=== PATIENT | male | born 1970 | race American Indian/Alaskan Native ===

== ENCOUNTER 2018-08-23 04:26 | Emergency (ER) | payer MEDICAID ==
[2018-08-23 04:32] VITALS: BP 136/78
--- NOTE | 2018-08-23 05:13 | Emergency Department Report ---
ED Back Pain/Injury HPI - General Chief Complaint: Back Pain/Injury Stated Complaint: BACK PAIN/TOOTH PAIN Time Seen by Provider: 08/23/18 04:54 Source: patient Limitations: No Limitations - History of Present Illness Initial Comments: This is a 47-year-old male nontoxic, well nourished in appearance, no acute signs of distress presents to the ED with c/o of acute on chronic lower back pain. Patient stated that he has lumbar disc herniation for many years. Patient stated that he believes he slept the wrong way and woke up suddenly with sharp pain. Patient states has history of sciatica nerve pain which is similar symptoms as today. Patient states that pain radiates through to his left lower extremity. Patient denies any trauma. Denies any bladder or bowel instability. Patient denies any urinary symptoms. Denies any fever, chills, nausea, vomiting, headache, stiff neck, chest pain or shortness of breath. Patient denies any numbness or tingling. Patient also has a secondary complaint of right lower toothache. Patient denies any facial swelling. Patient denies any radiation of pain. MD Complaint: back pain Similar Symptoms Previously: Yes Radiation: left leg Severity: mild Severity scale (0 -10): 8 Quality: aching Consistency: intermittent Improves With: immobilization, sitting upright Worsens With: movement, walking Associated Symptoms: denies other symptoms. denies: confusion, weakness, chest pain, numbness, difficulty walking, cough, difficulty urinating, diaphoresis, incontinence, fever/chills, constipation, headaches, abdominal pain, loss of appetite, malaise, nausea/vomiting, rash, seizure, shortness of breath, syncope - Related Data Previous Rx's Medication Instructions Recorded Last Taken Type Amoxicillin/K Clav Tab [Augmentin 1 tab PO Q12HR #20 tab 05/20/16 Unknown Rx 875 mg] HYDROcodone/APAP 10-325 [[place] 1 each PO Q6HR PRN #8 tablet 05/20/16 Unknown Rx 10-325 mg TAB] Amoxicillin [Amoxicillin TAB] 875 mg PO BID #20 tablet 09/02/16 Unknown Rx HYDROcodone/APAP 7.5-325 [[place] 1 each PO BID PRN #10 tablet 09/02/16 Unknown Rx 7.5/325] Acetaminophen [Tylenol] 500 mg PO Q8H PRN #20 capsule 08/23/18 Unknown Rx Amoxicillin/K Clav Tab [Augmentin 1 tab PO Q12HR #20 tab 08/23/18 Unknown Rx 875 mg] methOCARBAMOL [Robaxin TAB] 500 mg PO BID PRN #14 tab 08/23/18 Unknown Rx Allergies Allergy/AdvReac Type Severity Reaction Status Date / Time cyclobenzaprine Allergy Unknown Verified 08/23/18 04:45 [From Flexeril] ibuprofen [From Motrin] Allergy Rash Verified 09/02/16 09:58 quetiapine fumarate Allergy Unknown Verified 09/02/16 09:58 [From Seroquel] ED Review of Systems ROS: Stated complaint: BACK PAIN/TOOTH PAIN Other details as noted in HPI Constitutional: denies: chills, fever Eyes: denies: eye pain, eye discharge, vision change ENT: dental pain. denies: ear pain, throat pain Respiratory: denies: cough, shortness of breath, wheezing Cardiovascular: denies: chest pain, palpitations Endocrine: no symptoms reported Gastrointestinal: denies: abdominal pain, nausea, diarrhea Genitourinary: denies: urgency, dysuria Musculoskeletal: back pain. denies: joint swelling, arthralgia Skin: denies: rash, lesions Neurological: denies: headache, weakness, paresthesias Psychiatric: denies: anxiety, depression Hematological/Lymphatic: denies: easy bleeding, easy bruising ED Past Medical Hx - Past Medical History Previous Medical History?: Yes Hx Arthritis: Yes Hx Psychiatric Treatment: Yes (bipolar, depression) Additional medical history: back pain - Surgical History Past Surgical History?: Yes Hx Appendectomy: Yes Additional Surgical History: jaw, right hand, cyst from stomach - Social History Smoking Status: Never Smoker Substance Use Type: None - Medications Home Medications: Home Medications Medication Instructions Recorded Confirmed Last Taken Type Amoxicillin/K Clav Tab [Augmentin 1 tab PO Q12HR #20 tab 05/20/16 Unknown Rx 875 mg] HYDROcodone/APAP 10-325 [[place] 1 each PO Q6HR PRN #8 tablet 05/20/16 Unknown Rx 10-325 mg TAB] Amoxicillin [Amoxicillin TAB] 875 mg PO BID #20 tablet 09/02/16 Unknown Rx HYDROcodone/APAP 7.5-325 [[place] 1 each PO BID PRN #10 tablet 09/02/16 Unknown Rx 7.5/325] Acetaminophen [Tylenol] 500 mg PO Q8H PRN #20 capsule 08/23/18 Unknown Rx Amoxicillin/K Clav Tab [Augmentin 1 tab PO Q12HR #20 tab 08/23/18 Unknown Rx 875 mg] methOCARBAMOL [Robaxin TAB] 500 mg PO BID PRN #14 tab 08/23/18 Unknown Rx ED Physical Exam - General Limitations: No Limitations General appearance: alert, in no apparent distress - Head Head exam: Present: atraumatic, normocephalic - Eye Eye exam: Present: normal appearance Pupils: Present: normal accommodation - ENT ENT exam: Present: mucous membranes moist - Expanded ENT Exam Expanded Ear exam: Present: normal external inspection Mouth exam: Present: normal external inspection Teeth exam: Present: dental caries, fractured tooth #, dental tenderness #, gingival enlargement, other (no facial swelling or signs of abscess) 1 - Fractured, Dental Tenderness Throat exam: Positive: normal inspection. Negative: tonsillar erythema, tonsillomegaly, tonsillar exudate, R peritonsillar mass, L peritonsillar mass - Neck Neck exam: Present: normal inspection, full ROM. Absent: tenderness, meningismus, lymphadenopathy - Respiratory Respiratory exam: Present: normal lung sounds bilaterally. Absent: respiratory distress - Cardiovascular Cardiovascular Exam: Present: regular rate, normal rhythm. Absent: systolic murmur, diastolic murmur, rubs, gallop - GI/Abdominal GI/Abdominal exam: Present: soft, normal bowel sounds - Rectal Rectal exam: Present: deferred - Extremities Exam Extremities exam: Present: normal inspection, full ROM, normal capillary refill. Absent: tenderness - Back Exam Back exam: Present: normal inspection, full ROM, paraspinal tenderness (lumbar paraspinal). Absent: tenderness, CVA tenderness (R), CVA tenderness (L), muscle spasm, vertebral tenderness, rash noted - Expanded Back Exam Expanded Back exam: Absent: saddle anesthesia Back exam: Negative Straight Leg Raising: Left, Right - Neurological Exam Neurological exam: Present: alert, oriented X3 - Psychiatric Psychiatric exam: Present: normal affect, normal mood - Skin Skin exam: Present: warm, dry, intact, normal color. Absent: rash ED Course Vital Signs 08/23/18 04:28 Temperature 97.7 F Pulse Rate 71 Respiratory 18 Rate Blood Pressure 136/78 O2 Sat by Pulse 98 Oximetry - Reevaluation(s) Reevaluation #1: 08/23/18 05:10 Patient is speaking in full sentences with no signs of distress noted. ED Medical Decision Making - Medical Decision Making This is a 47-year-old male that presents with low back strain and dental caries with gingivitis. Patient is stable was examined by me. There is no spinal tenderness. There is no cauda equina syndrome during examination. No bladder or bowel instability. Patient was referred to Follow-up with a primary care doctor in 3-5 days or if symptoms worsen and continue return to emergency room as soon as possible. At time of discharge, the patient does not seem toxic or ill in appearance. No acute signs of distress noted. Patient agrees to discharge treatment plan of care. No further questions noted by the patient. This chart is dictated with using [employer]ation [employer] Critical care attestation.: If time is entered above; I have spent that time in minutes in the direct care of this critically ill patient, excluding procedure time. ED Disposition Clinical Impression: Dental caries Back pain, chronic Qualifiers: Back pain location: low back pain Back pain laterality: left Sciatica presence : with sciatica Sciatica laterality: sciatica of left side Qualified Code(s): M54.42 - Lumbago with sciatica, left side; G89.29 - Other chronic pain Disposition: - TO HOME OR SELFCARE Is pt being admited?: No Does the pt Need Aspirin: No Condition: Stable Instructions: Dental Caries (ED), Low Back Strain (ED), Cyclobenzaprine (By mouth) Additional Instructions: Follow-up with your primary care doctor in 3-5 days or if symptoms worsen such as bladder or bowel stability, chest pain, short of breath, numbness or tingling sensation in extremities, headache, dizziness, visual changes, nausea vomiting, or abdominal pain, return back to emergency room as was possible. Take ibuprofen and Flexeril as prescribed. Do not operate heavy machinery while taking Flexeril due to sedation Prescriptions: Acetaminophen [Tylenol] 500 mg PO Q8H PRN #20 capsule PRN Reason: Pain , Severe (7-10) Amoxicillin/K Clav Tab [Augmentin 875 mg] 1 tab PO Q12HR #20 tab methOCARBAMOL [Robaxin TAB] 500 mg PO BID PRN #14 tab PRN Reason: muscle strain Referrals: PRIMARY CARE, [Referring] - 3-5 Days SORAIDA ALVARADO MD [Staff Physician] - 3-5 Days [facility] [Outside] - 3-5 Days
== END 2018-08-23 05:43 | disposition home or self-care (01) ==
LOC: ED 04:26
DX: M54.42 Lumbago with sciatica, left side (principal); G89.29 Other chronic pain; K02.9 Dental caries, unspecified; M19.90 Unspecified osteoarthritis, unspecified site; F31.9 Bipolar disorder, unspecified; F32.9 Major depressive disorder, single episode, unspecified; Z90.49 Acquired absence of other specified parts of digestive tract; Z79.899 Other long term (current) drug therapy; Z88.6 Allergy status to analgesic agent; Z88.8 Allergy status to other drugs, medicaments and biological substances
CPT/HCPCS: 99282